=== PATIENT | female | born 1960 | race Hispanic/Latino ===

== ENCOUNTER → 2022-04-19 | Day surgery (SDC) | payer OTHER ==
[~2022-04-19] MED LIST: AMOXICILLIN125 MG PO; HYDROCODON-ACE1 EA11 PO; HYOSCYAMINE SULFATE 0.5 MG/ML INJ ONE; LEVOTHYROXINE200 MCG PO; METHYLPREDNISOLONE SOD SUCC 125 MG/2ML VIAL ONE; SOLODYN80 MG PO; VITAMIN D1000 UNI1 PO
[2022-04-19 17:55] VITALS: BP 111/82
== END | disposition home or self-care (01) ==
LOC: OR 13:49
PROVIDERS: ATTEND Internal Medicine Gastroenterology
DX: K51.90 Ulcerative colitis, unspecified, without complications (principal); K56.699 Other intestinal obstruction unspecified as to partial versus complete obstruction; K62.89 Other specified diseases of anus and rectum; K64.8 Other hemorrhoids; Z71.3 Dietary counseling and surveillance; E03.9 Hypothyroidism, unspecified; Z01.810 Encounter for preprocedural cardiovascular examination; Z79.899 Other long term (current) drug therapy; Z68.39 Body mass index [BMI] 39.0-39.9, adult
CPT/HCPCS: 36415; 45380; 83630; 83993; 85651; 86140; 86256; 86671; 87045; 87177; 87324; 87328; 87449; 93005; J1980; J2930; 45378

== ENCOUNTER 2022-04-26 14:17 | Inpatient (IN) | payer OTHER ==
[~2022-04-26] VITALS: Ht 157.5 cm; Wt 113.4 kg
[~2022-04-26 14:17] MED LIST changes: -HYOSCYAMINE SULFATE 0.5 MG/ML INJ ONE; -METHYLPREDNISOLONE SOD SUCC 125 MG/2ML VIAL ONE
[2022-04-26 15:15] LABS: BASOPHILS # (AUTO) 0.1 (0.0-0.1); BASOPHILS % 0.8 % (0.0-1.0); EOSINOPHILS # (AUTO) 0.3 (0.0-0.4); EOSINOPHILS % 4.3 % (0.0-6.0); HEMATOCRIT 44.4 % (34.2-44.1); LYMPHOCYTES # (AUTO) 1.9 (1.0-3.2); LYMPHOCYTES % 25.5 % (18.0-39.1); MEAN CORPUSCULAR HEMOGLOBIN 29.4 pg (28-32); MEAN CORPUSCULAR HGB CONC 31.5 g/dL (31-35); MEAN CORPUSCULAR VOLUME 93.1 fL (81-99); MONOCYTES # (AUTO) 0.8 (0.2-0.8); MONOCYTES % 10.5 % (4.4-11.3); NEUTROPHILS # (AUTO) 4.3 (2.1-6.9); NEUTROPHILS % 58.6 % (38.7-80.0); PLATELET COUNT 273 x10e3/uL (140-360); RED BLOOD COUNT 4.77 x10e6/uL (3.6-5.1); RED CELL DISTRIBUTION WIDTH 14.6 % (11.7-14.4)
[2022-04-26 15:26] LABS: ALBUMIN 3.5 g/dL (3.5-5.0); ALBUMIN/GLOBULIN RATIO 0.9 (0.8-2.0); ANION GAP 17.2 mmol/L (8-16); CALCIUM 8.9 mg/dL (8.4-10.2); CREATININE, SERUM 0.87 mg/dL (0.57-1.11); POTASSIUM 4.2 mmol/L (3.5-5.1)
[2022-04-26 15:38] LABS: CLARITY,URINE CLEAR (CLEAR); COLOR,URINE YELLOW (YELLOW); KETONES,URINE TRACE (NEGATIVE); LEUKOCYTE ESTERASE ,URINE NEGATIVE (NEGATIVE); NITRITE,URINE NEGATIVE (NEGATIVE); PROTEIN,URINE DIPSTICK NEGATIVE (NEGATIVE); URINE UROBILINOGEN 0.2 mg/dL (0.2 - 1)
[2022-04-26 15:47] LABS: BACTERIA,URINE RARE /HPF; EPITHELIAL CELLS,URINE MODERATE /LPF; RBC,URINE 0-5 /HPF (0-5); RENAL EPITHELIAL CELLS,URINE RARE
[2022-04-26] MEDS ORDERED: SODIUM CHLORIDE 0.9% 1000ML 1,000 ML IV ONE (17:00)
[2022-04-26] MEDS ORDERED: ONDANSETRON HCL INJ 2MG/ML 2ML 2 MG/ML VIAL IV PRN (17:00)
[2022-04-26] MEDS ORDERED: Morphine 4mg INJECTION 4 MG/ML INJ IV PRN (18:00)
[2022-04-26] MEDS: METHYLPREDNISOLONE SOD SUCC 125 MG/2ML VIAL IV SCH (18:29)
[2022-04-26] MEDS: FENTANYL CITRATE/PF 100MCG/2 ML INJ IV PRN ×2 (18:29→22:18)
[2022-04-26 20:59] VITALS: BP 106/67
[2022-04-26] MEDS ORDERED: HYDRALAZINE HCL 20 MG/ML VIAL IV PRN (22:15)
[2022-04-26] MEDS ORDERED: MELATONIN 3 MG TAB PO PRN (22:15)
[2022-04-26] MEDS ORDERED: ACETAMINOPHEN 325 MG TAB PO PRN (22:15)
[2022-04-26] MEDS ORDERED: MAGNESIUM/ALUMINUM/SIMETHICONE 30 ML UDC PO PRN (22:15)
[2022-04-26] MEDS ORDERED: GUAIFENESIN/DEXTROMETHORPHAN LIQD 5 ML UDC PO PRN (22:15)
[2022-04-26] MEDS: ONDANSETRON HCL INJ 2MG/ML 2ML 2 MG/ML VIAL IV PRN (22:18)
[2022-04-26 22:21] VITALS: BP 117/58
[2022-04-26] MEDS ORDERED: IOPAMIDOL 370 MG/ML 100 ML INFUS..BTL INJ ONE (22:24)
[2022-04-26] MEDS ORDERED: FENTANYL CITRATE/PF 100MCG/2 ML INJ IV PRN (22:30)
[2022-04-26 23:30] VITALS: BP 122/64
[2022-04-27] VITALS (7 sets, daily range): BP systolic 104–145; BP diastolic 57–83
[2022-04-27] MEDS: LACTATED RINGER'S 1,000 ML INJ SCH ×3 (00:34→18:15)
[2022-04-27] MEDS: METHYLPREDNISOLONE SOD SUCC 125 MG/2ML VIAL IV SCH ×4 (00:34→16:33)
[2022-04-27] MEDS: Morphine 4mg INJECTION 4 MG/ML INJ IV PRN ×2 (04:26→08:00)
[2022-04-27] MEDS: ONDANSETRON HCL INJ 2MG/ML 2ML 2 MG/ML VIAL IV PRN ×5 (04:27→20:21)
[2022-04-27] MEDS ORDERED: LEVOTHYROXINE SODIUM 125 MCG TAB PO SCH ×2 (07:00→09:00)
[2022-04-27 07:18] LABS: BASOPHILS % 0.1 % (0.0-1.0); HEMATOCRIT 41.2 % (34.2-44.1); HEMOGLOBIN 13.1 g/dL (12.0-16.0); LYMPHOCYTES # (AUTO) 1.2 (1.0-3.2); LYMPHOCYTES % 15.4 % (18.0-39.1); MEAN CORPUSCULAR HEMOGLOBIN 29.4 pg (28-32); MEAN CORPUSCULAR HGB CONC 31.8 g/dL (31-35); MEAN CORPUSCULAR VOLUME 92.6 fL (81-99); MONOCYTES # (AUTO) 0.1 (0.2-0.8); MONOCYTES % 1.2 % (4.4-11.3); NEUTROPHILS # (AUTO) 6.4 (2.1-6.9); NEUTROPHILS % 82.7 % (38.7-80.0); PLATELET COUNT 262 x10e3/uL (140-360); RED BLOOD COUNT 4.45 x10e6/uL (3.6-5.1); RED CELL DISTRIBUTION WIDTH 13.6 % (11.7-14.4)
[2022-04-27] MEDS: MULTIVITAMINS/MINERALS TAB PO SCH (08:01)
[2022-04-27 08:10] LABS: THYROID STIMULATING HORMONE 0.224 uIU/mL (0.350-4.940)
[2022-04-27 08:28] LABS: ANION GAP 17.1 mmol/L (8-16); CALCIUM 8.8 mg/dL (8.4-10.2); CREATININE, SERUM 0.69 mg/dL (0.57-1.11); POTASSIUM 4.1 mmol/L (3.5-5.1)
[2022-04-27 08:29] LABS: MAGNESIUM 1.7 MG/DL (1.3-2.1); PHOSPHORUS 2.4 MG/DL (2.3-4.7)
[2022-04-27] MEDS ORDERED: MESALAMINE 800 MG TAB PO SCH (09:00)
[2022-04-27] MEDS: CHLORDIAZEPOXIDE/CLIDINIUM 1 CAP PO SCH ×3 (09:37→20:22)
[2022-04-27] MEDS: MESALAMINE 400 MG CAP PO SCH ×2 (09:58→16:33)
[2022-04-27] MEDS: HYDROMORPHONE 1MG/1ML INJ IV PRN ×3 (11:58→20:21)
[2022-04-28] VITALS (7 sets, daily range): BP systolic 103–125; BP diastolic 59–78
[2022-04-28] MEDS: ONDANSETRON HCL INJ 2MG/ML 2ML 2 MG/ML VIAL IV PRN (00:42)
[2022-04-28] MEDS: METHYLPREDNISOLONE SOD SUCC 125 MG/2ML VIAL IV SCH ×4 (00:42→17:40)
[2022-04-28] MEDS: HYDROMORPHONE 1MG/1ML INJ IV PRN (00:43)
[2022-04-28] MEDS ORDERED: CHLORDIAZEPOXIDE/CLIDINIUM 1 CAP PO ONE (02:15)
[2022-04-28] MEDS: LACTATED RINGER'S 1,000 ML INJ SCH ×2 (04:46→16:14)
[2022-04-28] MEDS: LEVOTHYROXINE SODIUM 125 MCG TAB PO SCH (05:18)
[2022-04-28] MEDS: MULTIVITAMINS/MINERALS TAB PO SCH (09:32)
[2022-04-28] MEDS: MESALAMINE 400 MG CAP PO SCH ×2 (09:32→17:43)
[2022-04-28] MEDS: CHLORDIAZEPOXIDE/CLIDINIUM 1 CAP PO SCH ×4 (09:32→21:07)
[2022-04-29] VITALS: BP 151/76
[2022-04-29] MEDS ORDERED: DEXTROSE 50% SYRINGE 50 ML IV PRN (00:15)
[2022-04-29] MEDS: LACTATED RINGER'S 1,000 ML INJ SCH ×3 (00:22→20:07)
[2022-04-29] MEDS: METHYLPREDNISOLONE SOD SUCC 125 MG/2ML VIAL IV SCH ×4 (00:22→17:44)
[2022-04-29 04:00] VITALS: BP 110/62
[2022-04-29] MEDS: LEVOTHYROXINE SODIUM 125 MCG TAB PO SCH (05:30)
[2022-04-29] MEDS: INSULIN LISPRO 100 UNIT/1 ML 3ML VIAL SQ SCH ×4 (07:30→21:00)
[2022-04-29 08:14] VITALS: BP 130/85
[2022-04-29 08:50] VITALS: BP 130/85
[2022-04-29] MEDS: MULTIVITAMINS/MINERALS TAB PO SCH (09:23)
[2022-04-29] MEDS: MESALAMINE 400 MG CAP PO SCH ×2 (09:24→17:45)
[2022-04-29] MEDS: CHLORDIAZEPOXIDE/CLIDINIUM 1 CAP PO SCH ×4 (09:24→22:50)
[2022-04-29 11:27] VITALS: BP 142/80
[2022-04-29 20:00] VITALS: BP_SYST 124; BP_SYST 146; BP_DIAS 67; BP_DIAS 88
[2022-04-30] VITALS (7 sets, daily range): BP systolic 125–141; BP diastolic 57–89
[2022-04-30] MEDS: METHYLPREDNISOLONE SOD SUCC 125 MG/2ML VIAL IV SCH ×5 (00:31→23:44)
[2022-04-30] MEDS: LEVOTHYROXINE SODIUM 125 MCG TAB PO SCH (05:57)
[2022-04-30] MEDS: LACTATED RINGER'S 1,000 ML INJ SCH (05:58)
[2022-04-30] MEDS: INSULIN LISPRO 100 UNIT/1 ML 3ML VIAL SQ SCH ×4 (07:30→21:00)
[2022-04-30 08:37] LABS: BASOPHILS # (AUTO) 0.1 (0.0-0.1); BASOPHILS % 0.4 % (0.0-1.0); EOSINOPHILS % 0.1 % (0.0-6.0); HEMATOCRIT 42.6 % (34.2-44.1); HEMOGLOBIN 13.7 g/dL (12.0-16.0); LYMPHOCYTES # (AUTO) 1.2 (1.0-3.2); LYMPHOCYTES % 7.9 % (18.0-39.1); MEAN CORPUSCULAR HEMOGLOBIN 29.6 pg (28-32); MEAN CORPUSCULAR HGB CONC 32.2 g/dL (31-35); MONOCYTES # (AUTO) 0.4 (0.2-0.8); MONOCYTES % 2.7 % (4.4-11.3); NEUTROPHILS % 84.1 % (38.7-80.0); PLATELET COUNT 217 x10e3/uL (140-360); RED BLOOD COUNT 4.63 x10e6/uL (3.6-5.1)
[2022-04-30] MEDS: MULTIVITAMINS/MINERALS TAB PO SCH (08:59)
[2022-04-30] MEDS: CHLORDIAZEPOXIDE/CLIDINIUM 1 CAP PO SCH ×4 (08:59→22:17)
[2022-04-30] MEDS: MESALAMINE 400 MG CAP PO SCH ×2 (08:59→18:28)
[2022-04-30 09:12] LABS: ALBUMIN/GLOBULIN RATIO 1.1 (0.8-2.0); ANION GAP 13.5 mmol/L (8-16); CALCIUM 8.9 mg/dL (8.4-10.2); CREATININE, SERUM 0.78 mg/dL (0.57-1.11); POTASSIUM 3.5 mmol/L (3.5-5.1)
[2022-05-01] VITALS (8 sets, daily range): BP systolic 93–140; BP diastolic 60–87
[2022-05-01 00:27] LABS: CLARITY,URINE CLEAR (CLEAR); COLOR,URINE YELLOW (YELLOW); KETONES,URINE NEGATIVE (NEGATIVE); LEUKOCYTE ESTERASE ,URINE NEGATIVE (NEGATIVE); NITRITE,URINE NEGATIVE (NEGATIVE); PROTEIN,URINE DIPSTICK NEGATIVE (NEGATIVE); URINE UROBILINOGEN 0.2 mg/dL (0.2 - 1)
[2022-05-01 00:30] LABS: BACTERIA,URINE FEW /HPF; EPITHELIAL CELLS,URINE FEW /LPF; RBC,URINE 0-5 /HPF (0-5); WBC,URINE (MAN) 0-5 /HPF (0-5)
[2022-05-01] MEDS: METHYLPREDNISOLONE SOD SUCC 125 MG/2ML VIAL IV SCH ×2 (05:42→05:53)
[2022-05-01] MEDS: LEVOTHYROXINE SODIUM 125 MCG TAB PO SCH (07:00)
[2022-05-01 07:10] LABS: BASOPHILS % 0.2 % (0.0-1.0); HEMATOCRIT 38.3 % (34.2-44.1); HEMOGLOBIN 13.2 g/dL (12.0-16.0); LYMPHOCYTES % 6.4 % (18.0-39.1); MEAN CORPUSCULAR HEMOGLOBIN 29.6 pg (28-32); MEAN CORPUSCULAR HGB CONC 34.5 g/dL (31-35); MEAN CORPUSCULAR VOLUME 85.9 fL (81-99); MONOCYTES # (AUTO) 0.6 (0.2-0.8); MONOCYTES % 3.4 % (4.4-11.3); NEUTROPHILS % 87.4 % (38.7-80.0); PLATELET COUNT 222 x10e3/uL (140-360); RED BLOOD COUNT 4.46 x10e6/uL (3.6-5.1); RED CELL DISTRIBUTION WIDTH 13.5 % (11.7-14.4)
[2022-05-01] MEDS: INSULIN LISPRO 100 UNIT/1 ML 3ML VIAL SQ SCH ×4 (07:30→21:00)
[2022-05-01 07:34] LABS: ALBUMIN 2.8 g/dL (3.5-5.0); ALBUMIN/GLOBULIN RATIO 1.1 (0.8-2.0); ANION GAP 12.3 mmol/L (8-16); CALCIUM 8.5 mg/dL (8.4-10.2); CREATININE, SERUM 0.75 mg/dL (0.57-1.11); POTASSIUM 3.3 mmol/L (3.5-5.1)
[2022-05-01] MEDS: MESALAMINE 400 MG CAP PO SCH ×2 (08:47→16:50)
[2022-05-01] MEDS: MULTIVITAMINS/MINERALS TAB PO SCH (08:48)
[2022-05-01] MEDS: PREDNISONE 20 MG TAB PO SCH (08:48)
[2022-05-01] MEDS ORDERED: BISACODYL 10 MG SUPP PR PRN (09:00)
[2022-05-01] MEDS ORDERED: POTASSIUM CHLORIDE 20 MEQ TAB CR PO STA (23:57)
[2022-05-02] VITALS (8 sets, daily range): BP systolic 99–130; BP diastolic 56–76
[2022-05-02] MEDS ORDERED: POTASSIUM CHLORIDE 20 MEQ TAB CR PO ONE (01:00)
[2022-05-02] MEDS: LEVOTHYROXINE SODIUM 125 MCG TAB PO SCH ×2 (05:41→08:53)
[2022-05-02 05:59] LABS: BASOPHILS # (AUTO) 0.1 (0.0-0.1); BASOPHILS % 0.3 % (0.0-1.0); EOSINOPHILS % 0.1 % (0.0-6.0); HEMATOCRIT 42.9 % (34.2-44.1); HEMOGLOBIN 14.5 g/dL (12.0-16.0); LYMPHOCYTES # (AUTO) 0.9 (1.0-3.2); LYMPHOCYTES % 4.6 % (18.0-39.1); MEAN CORPUSCULAR HEMOGLOBIN 29.7 pg (28-32); MEAN CORPUSCULAR HGB CONC 33.8 g/dL (31-35); MEAN CORPUSCULAR VOLUME 87.9 fL (81-99); MONOCYTES % 5.1 % (4.4-11.3); NEUTROPHILS # (AUTO) 17.5 (2.1-6.9); NEUTROPHILS % 86.4 % (38.7-80.0); PLATELET COUNT 210 x10e3/uL (140-360); RED BLOOD COUNT 4.88 x10e6/uL (3.6-5.1); RED CELL DISTRIBUTION WIDTH 13.9 % (11.7-14.4)
[2022-05-02 06:14] LABS: ALBUMIN 2.9 g/dL (3.5-5.0); ALBUMIN/GLOBULIN RATIO 1.1 (0.8-2.0); ANION GAP 12.8 mmol/L (8-16); CALCIUM 8.6 mg/dL (8.4-10.2); CREATININE, SERUM 0.89 mg/dL (0.57-1.11); POTASSIUM 3.8 mmol/L (3.5-5.1)
[2022-05-02] MEDS: INSULIN LISPRO 100 UNIT/1 ML 3ML VIAL SQ SCH ×4 (07:30→21:00)
[2022-05-02] MEDS: PREDNISONE 20 MG TAB PO SCH (08:52)
[2022-05-02] MEDS: MULTIVITAMINS/MINERALS TAB PO SCH (08:52)
[2022-05-02] MEDS: MESALAMINE 400 MG CAP PO SCH ×2 (09:00→16:51)
[2022-05-03] VITALS: BP 120/66
[2022-05-03 04:00] VITALS: BP 113/68
[2022-05-03] MEDS: INSULIN LISPRO 100 UNIT/1 ML 3ML VIAL SQ SCH (07:30)
[2022-05-03 08:06] VITALS: BP 100/68
[2022-05-03] MEDS: PREDNISONE 20 MG TAB PO SCH (08:16)
[2022-05-03] MEDS: MULTIVITAMINS/MINERALS TAB PO SCH (08:16)
[2022-05-03] MEDS: MESALAMINE 400 MG CAP PO SCH (08:17)
[2022-05-03] MEDS: LEVOTHYROXINE SODIUM 125 MCG TAB PO SCH (08:17)
[2022-05-03 08:30] VITALS: BP 100/68
[2022-05-03] MEDS ORDERED: MESALAMINE1000 MG RC (09:27)
[2022-05-03] MEDS ORDERED: PREDNISONE20 MG PO (09:29)
[2022-05-03] MEDS ORDERED: PANTOPRAZOLE SO40 MG PO (09:30)
[2022-05-03] MEDS ORDERED: METFORMIN HCL500 MG PO (09:49)
== END 2022-05-03 11:19 | disposition home or self-care (01) | DRG 386 ==
LOC: ER 15:12 → ERHOLD 17:48 → MED/SURG2 23:46
PROVIDERS: ADMIT Internal Medicine; ATTEND Internal Medicine
DX: K51.911 Ulcerative colitis, unspecified with rectal bleeding (principal); K56.699 Other intestinal obstruction unspecified as to partial versus complete obstruction; E03.9 Hypothyroidism, unspecified; Z20.822 Contact with and (suspected) exposure to COVID-19
CPT/HCPCS: 0223U; 36415; 74019; 74177; 80048; 80053; 81001; 82948; 83690; 83735; 84100; 84443; 85025; 85651; 86140; 87086; 96361; 99284; J1170; J2270; J2405; J2930; J3010; J7030; J7121; J7512; Q9967

== ENCOUNTER → 2022-05-29 | Day surgery (SDC) | payer OTHER ==
[~2022-05-29] MED LIST changes: +GLUCAGON FOR INJ 1 MG VIAL ONE; +HYOSCYAMINE SULFATE 0.5 MG/ML INJ ONE; +MESALAMINE1000 MG RC; +MESALAMINE800 MG PO; +METFORMIN HCL500 MG PO; +MULTI-VITAMIN1 EACH PO; +PANTOPRAZOLE SO40 MG PO; +PREDNISONE10 MG PO; +PREDNISONE20 MG PO; +PROPOFOL IV EMULSION 10 MG/ML 20 ML VIAL ONE
[2022-05-29 08:55] VITALS: BP 108/81
== END | disposition home or self-care (01) ==
LOC: OR 07:28
PROVIDERS: ATTEND Internal Medicine Gastroenterology
DX: K51.90 Ulcerative colitis, unspecified, without complications (principal); K63.5 Polyp of colon; K57.30 Diverticulosis of large intestine without perforation or abscess without bleeding; B25.8 Other cytomegaloviral diseases; K64.8 Other hemorrhoids; K21.9 Gastro-esophageal reflux disease without esophagitis; E11.9 Type 2 diabetes mellitus without complications; E03.9 Hypothyroidism, unspecified; Z79.84 Long term (current) use of oral hypoglycemic drugs; Z79.899 Other long term (current) drug therapy; Z68.37 Body mass index [BMI] 37.0-37.9, adult
CPT/HCPCS: 36415; 45380; 45385; 82948; 83630; 83993; 86140; 87045; 87177; 87324; 87328; 87449; J1610; J1980; J2704; 45378